=== PATIENT | male | born 1970 ===

== ENCOUNTER 2020-01-05 19:31 | Emergency (ER) | payer OTHER ==
[~2020-01-05] VITALS: Ht 170.2 cm; Wt 83.5 kg
[2020-01-05] MEDS ORDERED: CLONAZEPAM1 MG (19:43)
== END 2020-01-05 20:22 | disposition home or self-care (01) ==
LOC: ER 19:31
DX: R53.1 Weakness (principal); F41.0 Panic disorder [episodic paroxysmal anxiety]

== ENCOUNTER → 2020-01-06 | Emergency (ER) | payer OTHER ==
[~2020-01-06] VITALS: Ht 170.2 cm; Wt 83.5 kg
[~2020-01-06] MED LIST: CLONAZEPAM1 MG
== END | disposition left against medical advice (07) ==
LOC: ER 00:57
DX: Z53.20 Procedure and treatment not carried out because of patient's decision for unspecified reasons (principal)

== ENCOUNTER 2020-11-16 05:20 | Emergency (ER) | payer OTHER ==
[~2020-11-16] VITALS: Ht 170.2 cm; Wt 87.5 kg
[2020-11-16] MEDS ORDERED: WELLBUTRIN SR150 MG (05:29)
[2020-11-16] MEDS ORDERED: MEDROL8 MG PO (07:27)
== END 2020-11-16 07:39 | disposition home or self-care (01) ==
LOC: ER 05:20
DX: T78.3XXA Angioneurotic edema, initial encounter (principal)